=== PATIENT | male | born 1965 | race Caucasian/White ===

== ENCOUNTER 2024-02-07 17:57 | Inpatient (IN) | payer MEDICARE, OTHER ==
[~2024-02-07] VITALS: Ht 182.9 cm; Wt 63.3 kg
[2024-02-07 19:11] LABS: BASOPHILS # (AUTO) 0.1 K/UL (0.0-0.2); BASOPHILS % (AUTO) 0.7 % (0.0-2.0); DIFFERENTIAL COMMENT 0; EOSINOPHILS # (AUTO) 0.9 K/uL (0.0-0.7); HEMATOCRIT 29.8 % (36.7-47.1); LYMPHOCYTES # (AUTO) 0.7 K/uL (0.8-4.8); LYMPHOCYTES % (AUTO) 9.4 % (20.5-51.5); MEAN CORPUSCULAR HEMOGLOBIN 35.6 uug (23.8-33.4); MEAN CORPUSCULAR HGB CONC 34 g/dL (32.5-36.3); MEAN CORPUSCULAR VOLUME 106.1 fL (73.0-96.2); MONOCYTES # (AUTO) 0.8 K/uL (0.1-1.30); MONOCYTES % (AUTO) 10.7 % (0.0-11.0); NEUTROPHILS # (AUTO) 4.8 K/uL (1.8-8.9); NEUTROPHILS % (AUTO) 66.2 % (38.5-71.5); PLATELET COUNT (AUTO) 267 K/uL (152-348); RED BLOOD CELL COUNT(AUTO) 2.81 MIL/uL (4.06-5.63); RED CELL DISTRIBUTION WIDTH 18.4 % (12.1-16.2); WHITE BLOOD COUNT (AUTO) 7.2 K/uL (3.6-10.2)
[2024-02-07 19:23] LABS: ALBUMIN 2.4 g/dL (3.4-5.0); BILIRUBIN,DIRECT 0.1 mg/dL (0.0-0.2); BILIRUBIN,TOTAL 0.4 mg/dL (0.2-1.0); MAGNESIUM 1.9 mg/dL (1.8-2.4); TOTAL PROTEIN, SERUM 7.4 g/dL (6.4-8.2)
[2024-02-07 19:27] LABS: CREATININE 3.4 mg/dL (0.6-1.3); POTASSIUM 3.7 mmol/L (3.5-5.1)
[2024-02-07] MEDS ORDERED: LORAZEPAM 2 MG/1 ML VIAL ONE (20:33)
[2024-02-07] MEDS: LORAZEPAM 2 MG/1 ML VIAL IV ONE (20:36)
[2024-02-07] MEDS ORDERED: hydrALAZINE HCL 25 MG TABLET ONE (22:02)
[2024-02-07] MEDS: hydrALAZINE HCL 25 MG TABLET PO ONE (22:04)
[2024-02-07] MEDS ORDERED: BUMETANIDE 1 MG TABLET ONE (22:54)
[2024-02-07] MEDS: BUMETANIDE 1 MG TABLET PO ONE (22:55)
[2024-02-07] MEDS ORDERED: BRIM5DRO5 RIGHTEYE (23:49)
[2024-02-07] MEDS ORDERED: FERR210T PO (23:49)
[2024-02-07] MEDS ORDERED: MIRT-74 PO (23:49)
[2024-02-07] MEDS ORDERED: HYDR100T27 PO (23:49)
[2024-02-07] MEDS ORDERED: AMIN960L24 PO (23:49)
[2024-02-07] MEDS ORDERED: EPOE200012 IJ (23:49)
[2024-02-07] MEDS ORDERED: LEVO25TA9 PO (23:49)
[2024-02-07] MEDS ORDERED: ASCO500C18 PO (23:49)
[2024-02-07] MEDS ORDERED: ACET-3117 PO (23:49)
[2024-02-07] MEDS ORDERED: MINO2.5T PO (23:49)
[2024-02-07] MEDS ORDERED: NIFE30TA91 PO (23:49)
[2024-02-07] MEDS ORDERED: TRAM50TA2 PO (23:49)
[2024-02-07] MEDS ORDERED: MULT-1045 PO (23:49)
[2024-02-07] MEDS ORDERED: NETA2.5D3 RIGHTEYE (23:49)
[2024-02-07] MEDS ORDERED: POLY17PO4 PO (23:49)
[2024-02-07] MEDS ORDERED: SENN8.6T19 PO (23:49)
[2024-02-07] MEDS ORDERED: ISOS20TA8 PO (23:49)
[2024-02-07] MEDS ORDERED: ASPI81TA31 PO (23:49)
[2024-02-07] MEDS ORDERED: CLON0.3T PO (23:49)
[2024-02-07] MEDS ORDERED: ATOR80TA PO (23:49)
[2024-02-07] MEDS ORDERED: PANT40TA49 PO (23:49)
[2024-02-07] MEDS ORDERED: HEPA500034 SUBCUT (23:49)
[2024-02-07] MEDS ORDERED: DOCU100C36 PO (23:49)
[2024-02-07] MEDS ORDERED: FOLI0.8T43 PO (23:49)
[2024-02-08] MEDS ORDERED: REMEDY ESSENTIAL ZINC PASTE 113 GM TP PRN (00:30)
[2024-02-08] MEDS ORDERED: ONDANSETRON 4 MG/2 ML VIAL IV PRN (00:30)
[2024-02-08] MEDS ORDERED: LABETALOL HCL 100 MG/20 ML VIAL ONE (01:16)
[2024-02-08] MEDS: LABETALOL HCL 100 MG/20 ML VIAL IV ONE (01:23)
[2024-02-08] MEDS: hydrALAZINE HCL 20 MG/1 ML VIAL IV ONE (01:24)
[2024-02-08] MEDS ORDERED: NICARDIPINE IN NS 200 ML IV ONE ×2 (02:05→06:01)
[2024-02-08] MEDS: NICARDIPINE IN NS 20 MG/200 ML PIGGYBACK IV ONE (02:17)
[2024-02-08] MEDS: NICARDIPINE-NS IVPB 200 ML IV ONE (02:17)
[2024-02-08 08:04] LABS: BASOPHILS # (AUTO) 0.1 K/UL (0.0-0.2); BASOPHILS % (AUTO) 1.4 % (0.0-2.0); EOSINOPHILS # (AUTO) 1.1 K/uL (0.0-0.7); EOSINOPHILS % (AUTO) 16.5 % (0.0-7.0); HEMATOCRIT 33.8 % (36.7-47.1); HEMOGLOBIN 11.4 g/dL (12.5-16.3); LYMPHOCYTES # (AUTO) 0.8 K/uL (0.8-4.8); LYMPHOCYTES % (AUTO) 12.9 % (20.5-51.5); MEAN CORPUSCULAR HEMOGLOBIN 35.9 uug (23.8-33.4); MEAN CORPUSCULAR HGB CONC 34 g/dL (32.5-36.3); MEAN CORPUSCULAR VOLUME 105.8 fL (73.0-96.2); MONOCYTES # (AUTO) 0.7 K/uL (0.1-1.30); MONOCYTES % (AUTO) 10.3 % (0.0-11.0); NEUTROPHILS # (AUTO) 3.8 K/uL (1.8-8.9); NEUTROPHILS % (AUTO) 58.9 % (38.5-71.5); PLATELET COUNT (AUTO) 268 K/uL (152-348); RED BLOOD CELL COUNT(AUTO) 3.19 MIL/uL (4.06-5.63); RED CELL DISTRIBUTION WIDTH 18.5 % (12.1-16.2); WHITE BLOOD COUNT (AUTO) 6.4 K/uL (3.6-10.2)
[2024-02-08 08:08] LABS: DIFFERENTIAL COMMENT 1
[2024-02-08 08:25] LABS: CARBON DIOXIDE 29 mmol/L (21-32); CHLORIDE 99 mmol/L (98-107); CREATININE 4.1 mg/dL (0.6-1.3); GLUCOSE 115 mg/dL (74-106); MAGNESIUM 1.9 mg/dL (1.8-2.4); NT-PRO BNP 477671 pg/mL (0-125); PHOSPHOROUS 3.1 mg/dL (2.5-4.9); POTASSIUM 3.8 mmol/L (3.5-5.1); SODIUM SERUM 134 mmol/L (136-145); UREA NITROGEN, BLOOD 29 mg/dL (7-18)
[2024-02-08] MEDS ORDERED: hydrALAZINE HCL 20 MG/1 ML VIAL ONE (12:10)
[2024-02-08] MEDS: hydrALAZINE HCL 20 MG/1 ML VIAL IV PRN (12:16)
[2024-02-08] MEDS ORDERED: TRAMADOL HCL 50 MG TABLET PO PRN (14:00)
[2024-02-08] MEDS ORDERED: hydrALAZINE HCL 50 MG TABLET ONE (14:06)
[2024-02-08] MEDS ORDERED: NIFEdipine XL 30 MG TABSR PO ONE (14:06)
[2024-02-08] MEDS: hydrALAZINE HCL 50 MG TABLET PO SCH (14:19)
[2024-02-08] MEDS: NIFEdipine XL 90 MG TABSR PO SCH (14:20)
[2024-02-08] MEDS: ISOSORBIDE DINITRATE 20 MG TABLET PO SCH (17:16)
[2024-02-08] MEDS: BRIMONIDINE 0.2% OPHT DROP 10 ML BOTTLE OP SCH (17:17)
[2024-02-08] MEDS ORDERED: LABE100T5 PO (18:25)
[2024-02-08] MEDS ORDERED: ERGO500040 PO (18:25)
[2024-02-08] MEDS ORDERED: SUCR1ORA15 PO (18:25)
[2024-02-08] MEDS ORDERED: DOXA2TAB2 PO (18:25)
[2024-02-08] MEDS ORDERED: ZINC50TA65 PO (18:25)
[2024-02-08] MEDS ORDERED: CLON1PAT2 TD (18:25)
[2024-02-08] MEDS ORDERED: ACETAMINOPHEN 325 MG TABLET ONE (18:40)
[2024-02-08] MEDS: ACETAMINOPHEN 325 MG TABLET PO PRN (18:41)
[2024-02-08] MEDS ORDERED: CINA30TA6 PO (18:43)
[2024-02-08 19:45] VITALS: BP 118/58; TEMP 97.8; O2SAT 97
[2024-02-08] MEDS: ATORVASTATIN 40 MG TABLET PO SCH (20:54)
[2024-02-08] MEDS: HEPARIN SODIUM,PORCINE 5,000 UNITS/ML VIAL SQ SCH (20:56)
[2024-02-09] VITALS (7 sets, daily range): BP systolic 98–209; BP diastolic 43–83; TEMP 97.6–99.7; O2SAT 96–99
[2024-02-09] MEDS: LEVOTHYROXINE SODIUM 50 MCG TABLET PO SCH (06:23)
[2024-02-09 07:27] LABS: BASOPHILS # (AUTO) 0.1 K/UL (0.0-0.2); BASOPHILS % (AUTO) 1.2 % (0.0-2.0); EOSINOPHILS # (AUTO) 1.2 K/uL (0.0-0.7); EOSINOPHILS % (AUTO) 20.9 % (0.0-7.0); HEMATOCRIT 28.5 % (36.7-47.1); HEMOGLOBIN 9.9 g/dL (12.5-16.3); LYMPHOCYTES # (AUTO) 0.9 K/uL (0.8-4.8); MEAN CORPUSCULAR HEMOGLOBIN 36.4 uug (23.8-33.4); MEAN CORPUSCULAR HGB CONC 35 g/dL (32.5-36.3); MEAN CORPUSCULAR VOLUME 104.8 fL (73.0-96.2); MONOCYTES # (AUTO) 0.6 K/uL (0.1-1.30); MONOCYTES % (AUTO) 10.9 % (0.0-11.0); NEUTROPHILS # (AUTO) 3.1 K/uL (1.8-8.9); PLATELET COUNT (AUTO) 222 K/uL (152-348); RED BLOOD CELL COUNT(AUTO) 2.72 MIL/uL (4.06-5.63); RED CELL DISTRIBUTION WIDTH 18.3 % (12.1-16.2); WHITE BLOOD COUNT (AUTO) 5.9 K/uL (3.6-10.2)
[2024-02-09 07:42] LABS: DIFFERENTIAL COMMENT 1
[2024-02-09 07:46] LABS: CREATININE 3.5 mg/dL (0.6-1.3); PHOSPHOROUS 3.2 mg/dL (2.5-4.9); POTASSIUM 3.8 mmol/L (3.5-5.1)
[2024-02-09] MEDS: SENNOSIDES 1 TABLET PO SCH (08:55)
[2024-02-09] MEDS: DOCUSATE SODIUM 100 MG CAPSULE PO SCH (08:56)
[2024-02-09] MEDS: MINOXIDIL 2.5 MG TABLET PO SCH (08:56)
[2024-02-09] MEDS: ASPIRIN 81 MG TAB.CHEW PO SCH (08:56)
[2024-02-09] MEDS: FOLIC ACID/VITAMIN B COMP W-C TABLET PO SCH (08:56)
[2024-02-09] MEDS: PANTOPRAZOLE SODIUM 40 MG TABLET.DR PO SCH (08:56)
[2024-02-09] MEDS: MIRALAX 17 GM POWD.PACK PO SCH (08:56)
[2024-02-09] MEDS: CLONIDINE HCL 0.3 MG TABLET PO PRN (15:51)
[2024-02-10] VITALS (7 sets, daily range): BP systolic 99–179; BP diastolic 41–70; TEMP 97.6–98.5; O2SAT 97–99
[2024-02-10 07:14] LABS: BASOPHILS # (AUTO) 0.1 K/UL (0.0-0.2); BASOPHILS % (AUTO) 1.5 % (0.0-2.0); EOSINOPHILS # (AUTO) 1.3 K/uL (0.0-0.7); EOSINOPHILS % (AUTO) 21.8 % (0.0-7.0); LYMPHOCYTES # (AUTO) 0.9 K/uL (0.8-4.8); MEAN CORPUSCULAR HEMOGLOBIN 36.5 uug (23.8-33.4); MEAN CORPUSCULAR HGB CONC 35 g/dL (32.5-36.3); MEAN CORPUSCULAR VOLUME 105.6 fL (73.0-96.2); MONOCYTES # (AUTO) 0.6 K/uL (0.1-1.30); MONOCYTES % (AUTO) 9.5 % (0.0-11.0); NEUTROPHILS % (AUTO) 52.2 % (38.5-71.5); PLATELET COUNT (AUTO) 217 K/uL (152-348); RED BLOOD CELL COUNT(AUTO) 2.75 MIL/uL (4.06-5.63); RED CELL DISTRIBUTION WIDTH 17.5 % (12.1-16.2); WHITE BLOOD COUNT (AUTO) 5.8 K/uL (3.6-10.2)
[2024-02-10 07:22] LABS: DIFFERENTIAL COMMENT 1
[2024-02-10 07:27] LABS: CALCIUM 8.2 mg/dL (8.5-10.1)
[2024-02-10 11:35] LABS: EOSINOPHILS % (MANUAL) 25 % (0-8); LYMPHOCYTES % (MANUAL) 17 % (20-40); MONOCYTES % (MANUAL) 11 % (2-10); NEUTROPHILS % (MANUAL) 47 % (42-75)
[2024-02-10 11:36] LABS: ANISOCYTOSIS 1+; PLATELET ESTIMATE ADEQUATE
[2024-02-10] MEDS ORDERED: SORBITOL 70% SOLUTION 30 ML UDC PO PRN (12:15)
[2024-02-10] MEDS: hydrALAZINE HCL 50 MG TABLET PO SCH (12:15)
[2024-02-10] MEDS: BISACODYL 10 MG SUPP.RECT RC ONE (12:46)
[2024-02-10] MEDS: LACTULOSE 20 G/30 ML LIQUID UDC PO ONE (12:46)
[2024-02-10] MEDS ORDERED: EPOETIN ALFA 20,000 UNIT/ML ML SQ SCH (14:00)
[2024-02-10] MEDS ORDERED: LABETALOL HCL 200 MG TABLET PO SCH (21:00)
[2024-02-11] VITALS: BP 132/60; TEMP 97.8; O2SAT 96
[2024-02-11 04:00] VITALS: BP 206/87; TEMP 98.9; O2SAT 96
[2024-02-11 05:11] LABS: HEPATITIS B SURFACE AB, QUAL Reactive (.); HEPATITIS B SURFACE AG Negative (Negative)
[2024-02-11] MEDS: hydrALAZINE HCL 20 MG/1 ML VIAL IV ONE (05:48)
[2024-02-11 06:39] LABS: BASOPHILS # (AUTO) 0.1 K/UL (0.0-0.2); BASOPHILS % (AUTO) 1.1 % (0.0-2.0); EOSINOPHILS # (AUTO) 1.1 K/uL (0.0-0.7); EOSINOPHILS % (AUTO) 20.8 % (0.0-7.0); HEMATOCRIT 27.7 % (36.7-47.1); HEMOGLOBIN 9.8 g/dL (12.5-16.3); LYMPHOCYTES # (AUTO) 0.8 K/uL (0.8-4.8); LYMPHOCYTES % (AUTO) 14.5 % (20.5-51.5); MEAN CORPUSCULAR HEMOGLOBIN 37.2 uug (23.8-33.4); MEAN CORPUSCULAR HGB CONC 35 g/dL (32.5-36.3); MEAN CORPUSCULAR VOLUME 105.5 fL (73.0-96.2); MONOCYTES # (AUTO) 0.5 K/uL (0.1-1.30); MONOCYTES % (AUTO) 9.2 % (0.0-11.0); NEUTROPHILS % (AUTO) 54.4 % (38.5-71.5); PLATELET COUNT (AUTO) 190 K/uL (152-348); RED BLOOD CELL COUNT(AUTO) 2.63 MIL/uL (4.06-5.63); RED CELL DISTRIBUTION WIDTH 17.5 % (12.1-16.2); WHITE BLOOD COUNT (AUTO) 5.4 K/uL (3.6-10.2)
[2024-02-11 06:41] LABS: DIFFERENTIAL COMMENT 1
[2024-02-11 06:56] LABS: CREATININE 3.5 mg/dL (0.6-1.3); MAGNESIUM 1.8 mg/dL (1.8-2.4); PHOSPHOROUS 4.5 mg/dL (2.5-4.9); POTASSIUM 4.2 mmol/L (3.5-5.1)
[2024-02-11] MEDS ORDERED: MINOXIDIL 2.5 MG TABLET PO SCH (09:00)
[2024-02-11] MEDS ORDERED: LABETALOL HCL 200 MG TABLET PO SCH (09:00)
[2024-02-11] MEDS: MINOXIDIL 2.5 MG TABLET PO SCH (09:24)
[2024-02-11] MEDS: LABETALOL HCL 100 MG TABLET PO SCH ×2 (09:24→20:31)
[2024-02-11 09:30] VITALS: BP 211/82; O2SAT 97
[2024-02-11 12:30] VITALS: BP 185/68; O2SAT 96
[2024-02-11 12:52] LABS: NEUTROPHILS % (MANUAL) 0 % (42-75)
[2024-02-11 15:32] VITALS: BP 185/77; TEMP 98; O2SAT 98
[2024-02-11 19:00] VITALS: BP 184/74; TEMP 98.8; O2SAT 99
[2024-02-11] MEDS: TRAMADOL HCL 50 MG TABLET PO PRN (23:49)
[2024-02-12] VITALS: BP 191/71; TEMP 97.8; O2SAT 95
[2024-02-12 04:00] VITALS: BP 161/64; TEMP 97.7; O2SAT 97
[2024-02-12 07:30] LABS: BASOPHILS # (AUTO) 0.1 K/UL (0.0-0.2); BASOPHILS % (AUTO) 0.9 % (0.0-2.0); EOSINOPHILS # (AUTO) 1.4 K/uL (0.0-0.7); HEMATOCRIT 28.7 % (36.7-47.1); MEAN CORPUSCULAR HEMOGLOBIN 37.2 uug (23.8-33.4); MEAN CORPUSCULAR HGB CONC 35 g/dL (32.5-36.3); MEAN CORPUSCULAR VOLUME 106.4 fL (73.0-96.2); MONOCYTES # (AUTO) 0.6 K/uL (0.1-1.30); MONOCYTES % (AUTO) 9.5 % (0.0-11.0); NEUTROPHILS # (AUTO) 3.5 K/uL (1.8-8.9); NEUTROPHILS % (AUTO) 53.6 % (38.5-71.5); PLATELET COUNT (AUTO) 195 K/uL (152-348); RED CELL DISTRIBUTION WIDTH 17.2 % (12.1-16.2); WHITE BLOOD COUNT (AUTO) 6.6 K/uL (3.6-10.2)
[2024-02-12 07:40] VITALS: BP 153/63; TEMP 98.2; O2SAT 98
[2024-02-12 07:43] LABS: DIFFERENTIAL COMMENT 1
[2024-02-12 07:50] LABS: CALCIUM 8.1 mg/dL (8.5-10.1); CREATININE 4.8 mg/dL (0.6-1.3); MAGNESIUM 1.9 mg/dL (1.8-2.4); POTASSIUM 5.3 mmol/L (3.5-5.1)
[2024-02-12] MEDS: NEPRO (VANILLA) 237 ML CAN PO SCH (09:00)
[2024-02-12 10:05] LABS: EOSINOPHILS % (MANUAL) 21 % (0-8); LYMPHOCYTES % (MANUAL) 15 % (20-40); MONOCYTES % (MANUAL) 10 % (2-10); NEUTROPHILS % (MANUAL) 54 % (42-75); PLATELET ESTIMATE ADEQUATE
[2024-02-12 10:06] LABS: ANISOCYTOSIS 1+
[2024-02-12 10:50] VITALS: BP 122/54; TEMP 98.3; O2SAT 96
[2024-02-12] MEDS ORDERED: LACTULOSE 20 G/30 ML LIQUID UDC PO PRN (12:45)
[2024-02-12 14:57] VITALS: BP 93/40; TEMP 98.2; O2SAT 96
[2024-02-12 19:00] VITALS: BP 164/67; TEMP 98.1; O2SAT 100
[2024-02-13] VITALS: BP 170/75; TEMP 98.6; O2SAT 96
[2024-02-13 04:00] VITALS: BP 174/69; TEMP 98.6; O2SAT 95
[2024-02-13] MEDS: hydrALAZINE HCL 20 MG/1 ML VIAL IV ONE (05:02)
[2024-02-13 07:31] VITALS: BP 131/52; TEMP 97.2; O2SAT 97
[2024-02-13 07:58] LABS: BASOPHILS % (AUTO) 0.7 % (0.0-2.0); EOSINOPHILS # (AUTO) 1.2 K/uL (0.0-0.7); EOSINOPHILS % (AUTO) 18.2 % (0.0-7.0); HEMATOCRIT 30.7 % (36.7-47.1); HEMOGLOBIN 10.4 g/dL (12.5-16.3); LYMPHOCYTES # (AUTO) 0.9 K/uL (0.8-4.8); LYMPHOCYTES % (AUTO) 13.9 % (20.5-51.5); MEAN CORPUSCULAR HEMOGLOBIN 36.2 uug (23.8-33.4); MEAN CORPUSCULAR HGB CONC 34 g/dL (32.5-36.3); MEAN CORPUSCULAR VOLUME 106.5 fL (73.0-96.2); MONOCYTES # (AUTO) 0.5 K/uL (0.1-1.30); MONOCYTES % (AUTO) 7.4 % (0.0-11.0); NEUTROPHILS # (AUTO) 3.9 K/uL (1.8-8.9); NEUTROPHILS % (AUTO) 59.8 % (38.5-71.5); PLATELET COUNT (AUTO) 177 K/uL (152-348); RED BLOOD CELL COUNT(AUTO) 2.89 MIL/uL (4.06-5.63); RED CELL DISTRIBUTION WIDTH 16.9 % (12.1-16.2); WHITE BLOOD COUNT (AUTO) 6.5 K/uL (3.6-10.2)
[2024-02-13 08:25] LABS: DIFFERENTIAL COMMENT 1
[2024-02-13 08:37] LABS: CALCIUM 8.3 mg/dL (8.5-10.1); MAGNESIUM 1.8 mg/dL (1.8-2.4); PHOSPHOROUS 4.9 mg/dL (2.5-4.9); POTASSIUM 4.8 mmol/L (3.5-5.1)
[2024-02-13 10:28] VITALS: BP 107/43; TEMP 97.8; O2SAT 97
[2024-02-13 11:30] VITALS: BP 100/46; TEMP 97.3; O2SAT 98
[2024-02-13] MEDS ORDERED: LACT10SO7 PO (12:32)
[2024-02-13] MEDS ORDERED: LABE100T15 PO (12:32)
[2024-02-13 13:15] VITALS: BP 107/47; TEMP 97.9; O2SAT 98
== END 2024-02-13 13:40 | DRG 304 ==
LOC: ER 17:57 → TRANSITION 02-08 06:22 → TELE3 02-08 20:26
PROVIDERS: ADMIT Nurse Practitioner Family; ATTEND Nurse Practitioner Family
PROC: 5A1D70Z Performance of Urinary Filtration, Intermittent, Less than 6 Hours Per Day (ICD-10-PCS; principal; 2024-02-08)
DX: I16.0 Hypertensive urgency (principal); I50.33 Acute on chronic diastolic (congestive) heart failure; N18.6 End stage renal disease; E44.1 Mild protein-calorie malnutrition; I13.2 Hypertensive heart and chronic kidney disease with heart failure and with stage 5 chronic kidney disease, or end stage renal disease; E11.22 Type 2 diabetes mellitus with diabetic chronic kidney disease; Z99.2 Dependence on renal dialysis; E03.9 Hypothyroidism, unspecified; D63.1 Anemia in chronic kidney disease; E11.65 Type 2 diabetes mellitus with hyperglycemia; E78.5 Hyperlipidemia, unspecified; E87.5 Hyperkalemia; E88.09 Other disorders of plasma-protein metabolism, not elsewhere classified; I69.398 Other sequelae of cerebral infarction; H54.61 Unqualified visual loss, right eye, normal vision left eye; I25.10 Atherosclerotic heart disease of native coronary artery without angina pectoris; N25.0 Renal osteodystrophy; Z79.899 Other long term (current) drug therapy; Z79.890 Hormone replacement therapy; R11.2 Nausea with vomiting, unspecified; K21.9 Gastro-esophageal reflux disease without esophagitis
CPT/HCPCS: 36415; 70030-TC; 71045; 83735; 84100; 84484; 85025; 85730; 86706; 87340; 90937; 93307; A4606; A4663; A6209; A6213; C1758; G0378; J0360; J1644; J2060; J3490; J7040